=== PATIENT | female | born 1995 | race Caucasian/White ===

== ENCOUNTER → 2017-05-12 | Outpatient (CLI) | payer BC ==
[~2017-05-12] MED LIST: Birth Control Pill; EPIPEN ADU0.3 MG/0.3 IM; LEVOTHROID125 MCG PO; LEVOTHROID25 MCG PO; PEPCID40 MG PO; PREDNISONE20 MG PO; ZYRTEC10 M2 PO
== END | disposition home or self-care (01) ==
LOC: AMB 11:00
DX: D22.5 Melanocytic nevi of trunk (principal); L98.8 Other specified disorders of the skin and subcutaneous tissue; L90.5 Scar conditions and fibrosis of skin; L91.8 Other hypertrophic disorders of the skin
CPT/HCPCS: 88305